=== PATIENT | female | born 1955 | race Caucasian/White ===

== ENCOUNTER 2016-09-04 08:20 | Day surgery (SDC) | payer BC ==
[~2016-09-04] VITALS: Ht 149.9 cm; Wt 73.9 kg
[~2016-09-04 08:20] MED LIST: GABAPENTIN100 MG PO; GLUCOPHAGE500 MG PO; GLUCOTROL 5 MG T5 MG PO
[2016-09-04 09:30] VITALS: BP 162/87; Ht 149.9 cm; Wt 73.9 kg
[2016-09-04 10:00] LABS: MCH 29.5 pg (26.0-34.0); MCHC 34.2 g/dL (31.0-37.0); MCV 86.4 fL (80.0-100.0); MEAN PLATELET VOLUME 10.9 fL (7.4-10.4); RBC 4.4 10x6/uL (4.00-5.40); RDW 13.6 % (11.5-14.5); WBC 7.2 10x3/uL (4.8-10.8)
[2016-09-04 10:23] LABS: CALC OSMOLALITY 284 mosm/kg (275-300); CALCIUM 8.8 mg/dL (8.5-10.1); CARBON DIOXIDE 26.8 mmol/L (21.0-32.0); CHLORIDE - SERUM 105 mmol/L (98-107); CREATININE - SERUM 0.7 mg/dL (0.6-1.3); GLUCOSE 143 mg/dL (74-106); POTASSIUM - SERUM 4.4 mmol/L (3.5-5.1); SODIUM 140 mmol/L (136-145); UREA NITROGEN 25 mg/dL (7-18); eGFR NON AFRICAN AMERICAN > 90 mL/min (90-120)
[2016-09-04] MEDS ORDERED: HYDROCODONE-APA1 TAB PO ×2 (12:06→12:07)
--- NOTE | 2016-09-04 14:16 | NUR ---
IV DC WITH CATHER TIP INTACT
--- NOTE | 2016-09-15 10:28 | OP ---
PATIENT NAME: ARAMIS ORTEGA MEDICAL RECORD: [id number] :57 LOCATION:[facility] ADMISSION DATE: SURGEON: SLAVA HAYDEN MD DATE OF OPERATION: 09/04/2016 PREOPERATIVE DIAGNOSIS: Right lateral malleolus fracture with displacement. POSTOPERATIVE DIAGNOSIS: Right lateral malleolus fracture with displacement. PROCEDURE PERFORMED: ____ open reduction and internal fixation with the [place] 3.0 fibular nail. SURGEON: Landon Hayden MD ANESTHESIA: General. She did get a block for postop pain. CONDITION: She tolerated the procedure well, was transferred to recovery room in stable condition at the termination of procedure. INDICATIONS: This is a pleasant 60-year-old female that had a fall, had a fracture of her left fibula. It was displaced. We discussed options with her. She wanted to go ahead and do an open reduction internal fixation. She did have joint opening on her x-rays, but did not appear to have medial malleolar fracture. OPERATIVE REPORT: The patient was taken to the operating room, placed in supine position. General anesthesia was obtained. She did get a block in the preop holding area. In the operating room, she underwent a prep and drape in the standard fashion. She did receive her Ancef per protocol. After this was accomplished, we did make a small incision over the fracture site. Fracture was reduced using lion jaw clamp. I then placed the pin in the distal tip of her fibula. I verified on AP and lateral views that this was up the center of the fibula. I then overdrilled the distal portion with a larger drill, replaced the guide pin with a smaller guide pin and over drilled the guide pin proximally. Once this was accomplished, I went ahead and placed through the nail. This was placed up into the fibula and verified to be within the bone, following which, I deployed the locking device in the proximal portion of the nail by screwing into the nail until it was deployed. This was notably deployed on the x-rays showing it. I then went ahead and placed 2 screws distally into the 2 distal locking holes. Once this was placed, I copiously irrigated, then closed with 2-0 Vicryl, then lacy. She was then cleaned, following which a sterile gauze was placed and an Kevin wrap. She was then placed in an AO type splint, awakened and transferred to the recovery room in stable condition, having tolerated procedure well. TRANSINT:[id number] Voice Confirmation ID: [id number] DOCUMENT ID: [id number] OPERATIVE REPORT [id number] ARAMIS ORTEGA, SLAVA TOMPKINS MD at 1028 CC: [id number] DICTATION DATE: 09/04/16 1213 [employer]OM[employer] BRAKES BONDER: 09/04/16 1345 [facility] 09/04/16 [place] [id number]
== END 2016-09-04 14:15 | disposition home or self-care (01) ==
LOC: D.OPS 08:20 → D.PAN 10:30 → D.OPS 10:30
PROVIDERS: Anesthesiology
DX: S82.61XA Displaced fracture of lateral malleolus of right fibula, initial encounter for closed fracture (principal)

== ENCOUNTER → 2016-11-26 10:15 | Outpatient (CLI) | payer OTHER ==
[2016-09-04 09:30] VITALS: BMI 33.0
[~2016-11-26 10:15] MED LIST changes: +HYDROCODONE-APA1 TAB PO
== END | disposition home or self-care (01) ==
LOC: D.RAD 10:15
DX: Z02.71 Encounter for disability determination (principal)

== ENCOUNTER → 2017-04-22 08:56 | Outpatient (CLI) | payer BC ==
[2016-09-04 09:30] VITALS: BMI 33.0
== END | disposition home or self-care (01) ==
LOC: D.CT 08:56
DX: M21.372 Foot drop, left foot (principal); M21.371 Foot drop, right foot

== ENCOUNTER → 2019-01-02 16:27 | Outpatient (CLI) | payer BC ==
[2016-09-04 09:30] VITALS: BMI 33.0
== END | disposition home or self-care (01) ==
LOC: D.US 16:00
PROVIDERS: ATTEND Family Medicine
DX: I70.248 Atherosclerosis of native arteries of left leg with ulceration of other part of lower leg (principal)

== ENCOUNTER → 2019-01-09 07:22 | Outpatient (CLI) | payer BC ==
[2016-09-04 09:30] VITALS: BMI 33.0
== END | disposition home or self-care (01) ==
LOC: D.CT 07:22
PROVIDERS: ATTEND Family Medicine
DX: I65.23 Occlusion and stenosis of bilateral carotid arteries (principal)

== ENCOUNTER 2019-02-27 08:25 | Day surgery (SDC) | payer BC ==
[~2019-02-27] VITALS: Ht 149.9 cm; Wt 85.9 kg
--- NOTE | ~2019-02-27 | HEMODYNAMI ---
PATIENT:ARAMIS ORTEGA MEDICAL RECORD: [id number] : 57 LOCATION:[facility] ADMISSION DATE: 02/27/19 Generatedon:02/27/201912:12 Patient name: ARAMIS ORTEGA Patient #: [id number] SSN: : Date of study: 02/27/2019 Page: Of Hemodynamic Procedure Report Patient Data Patient Demographics Procedure consent was obtained First Name: ARAMIS Gender: Female Last Name: JORDAN : 1955 [facility] Initial: CELIA Age: 63 year(s) Patient #: [id number] Race: Unknown Additional ID: [id number] Contact details Address: [address] [place] [address] State: [place] City: [place] Zip code: [address] Past Medical History Allergies: No known allergies Admission Admission Data Admission Date: 02/27/2019 Admission Time: 7:54 Procedure Procedure Types Cath Procedure Peripheral Cath Diagnostic Procedure Abd/Extremity Extremities Bilat Lower Extremity Procedure Description Procedure Date Procedure Date: 02/27/2019 Procedure Start Time: 10:51 Procedure End Time: 11:56 Procedure Staff Name Function Timothy Cheyenne RT Scrub Matthew Reyes MD Performing Physician Soo Argueta RT Monitor Rosa Wu RN Nurse Eulalia Mathew RN Nurse Procedure Data Cath Procedure Fluoroscopy Diagnostic fluoroscopy Total fluoroscopy Time: 7.4 time: 7.4 min min Diagnostic fluoroscopy Total fluoroscopy dose: 584 dose: 584 mGy mGy Contrast Material Contrast Material Type Amount (ml) Isovue 300 85 Entry Location Entry Primary Successful Side Size Upsize Upsize Entry Closure Succes sful Closure Location (Fr) 1 (Fr) 2 (Fr) Remarks Device Remarks Femoral artery Procedure Medications Medication Administration Route Dosage Lidocaine 1% added to field 20 Heparin Flush Bag added to field 3 bags (1000units/500ml NS) Benadryl I.V. 50 mg Versed I.V. 1 mg Fentanyl I.V. 50 mcg Versed I.V. 1 mg Fentanyl I.V. 50 mcg Heparin Bolus I.V. 4000 units Nitroglycerin IC/IA I.A. 300 mcg Versed I.V. 1 mg Fentanyl I.V. 50 mcg Hemodynamics Rest Heart Rate: 74 (bpm) Snapshots Pre Cath Intra NCS Post Cath Vital Signs Time Heart Resp SPO2 etCO2 NIBP (mmHg) Rhythm Pain Sedation Rate (ipm) (%) (mmHg) Status Level (bpm) 10:37:34 84 16 100 0 Measuring NSR 0 (11) 10(A) , No pain 10:37:52 75 15 100 18 167/88(134) NSR 0 (11) 10(A) , No pain 10:42:10 73 15 100 20 166/85(130) NSR 0 (11) 10(A) , No pain 10:46:27 73 16 100 20 175/93(134) NSR 0 (11) 10(A) , No pain 10:50:51 74 17 99 20 159/78(128) NSR 0 (11) 8(A) , No pain 10:55:48 72 13 100 36.1 159/87(134) NSR 0 (11) 8(A) , No pain 10:58:54 70 15 100 18.8 153/77(131) NSR 0 (11) 8(A) , No pain 11:03:08 74 13 100 10.5 161/82(130) NSR 0 (11) 8(A) , No pain 11:07:24 71 15 100 38.3 153/86(121) NSR 0 (11) 8(A) , No pain 11:11:40 74 18 100 36.1 152/78(120) NSR 0 (11) 8(A) , No pain 11:15:56 70 20 100 44.5 151/80(117) NSR 0 (11) 8(A) , No pain 11:20:14 71 19 100 36.9 127/74(96) NSR 0 (11) 8(A) , No pain 11:24:22 71 18 99 19.6 143/73(122) NSR 0 (11) 8(A) , No pain 11:28:36 70 21 100 21 142/72(99) NSR 0 (11) 8(A) , No pain 11:32:48 73 12 100 39.1 129/82(107) NSR 0 (11) 8(A) , No pain 11:36:56 74 10 99 38.4 133/76(100) NSR 0 (11) 8(A) , No pain 11:41:14 71 16 99 33.9 135/62(104) NSR 0 (11) 8(A) , No pain 11:45:26 73 16 99 27.8 128/72(106) NSR 0 (11) 8(A) , No pain 11:49:33 71 20 100 37.6 140/78(106) NSR 0 (11) 8(A) , No pain 11:53:47 71 15 99 24.1 132/72(107) NSR 0 (11) 8(A) , No pain Medications Time Medication Route Dose Verified Delivered Reason Notes Effe ctiveness by by 10:37:30 Lidocaine 1% added 20ml Matthew Castro for local to vial Eric Reyes MD anesthetic field ESCALERA 10:46:53 Heparin Flush added 3 Matthew Castro used for Bag to bags Eric Reyes MD procedure (1000units/500ml field ESCALERA NS) 10:47:12 Benadryl I.V. 50 mg Matthew Lee for Bryce Reyes RN sedation 10:49:01 Versed I.V. 1 mg Matthew Lee for Bryce Reyes RN sedation 10:49:13 Fentanyl I.V. 50 Matthew Lee for mcg Bryce Reyes RN sedation 10:56:51 Versed I.V. 1 mg Matthew Lee for Bryce Reyes RN sedation 10:56:59 Fentanyl I.V. 50 Matthew Lee for mcg Bryce Reyes RN sedation 11:15:23 Heparin Bolus I.V. 4000 Matthew Lee Per units Bryce Reyes RN physician 11:34:15 Nitroglycerin I.A. 300 Matthew Castro Per IC/IA mcg Eric Reyes MD physician 11:39:51 Versed I.V. 1 mg Matthew Lee for Bryce Reyes RN sedation 11:40:04 Fentanyl I.V. 50 Matthew Lee for mcg Bryce Reyes RN sedation Procedure Log Time Note 10:09:01 Rosa Wu RN sent for patient. Start room use. 10:09:04 Time tracking: Regular hours (M-F 7:00 - 5:00) 10:09:13 Plan of Care:Hemodynamics will remain stable., Cardiac rhythm will remain stable., Comfort level will be maintained., Respiratory function will remain adequate., Patient/ family verbilizes understanding of procedure., Procedure tolerated without complication., Recovers from procedure without complications.. 10:09:26 Use device set IR Diagnostic 10:09:29 ACIST Syringe (69420) opened to sterile field. 10:09:30 ACIST Hand Control (95290) opened to sterile field. 10:09:31 ACIST Manifold (66571) opened to sterile field. 10:09:32 Sterile Angiographic Pack opened to sterile field. 10:09:32 Bag Decanter (2002S) opened to sterile field. 10:09:33 Tegaderm 4 x 4 (1626W) opened to sterile field. 10:10:30 SHEATH 5FR [place] (KOL366) opened to sterile field. 10:10:31 HARRY 260 wire (C80328) opened to sterile field. 10:10:32 TUBING Contrast Injection High Pressure (ATS401K) opened to sterile field. 10:11:06 Micropuncture VSI 4FR kit opened to sterile field. 10:19:10 Patient received from Outpatients to IR Alert and oriented. Tansferred to table in Supine position. 10:19:14 Signed procedure consent form obtained from patient. 10:19:16 Warm blankets applied for patient comfort. 10:19:18 Correct patient and procedure confirmed by team. 10:22:02 H&P Date Dictated: 02/27/2019 H&P Addendum completed by physician on day of procedure. (MUST COMPLETE FOR ALL OUTPATIENTS). 10:22:05 Pre-procedure instructions explained to patient. 10:22:07 Pre-op teaching completed and patient verbalized understanding. 10:22:12 Family in waiting room. 10:22:19 Patient NPO since Midnight. 10:22:31 Patient allergic to pseudoephedrine and Nalfon. 10:22:35 Is the patient allergic to Iodine/contrast media? No. 10:22:45 Is patient on blood thinner?No 10:22:52 Patient diabetic? Yes. 10:22:55 If diabetic: On Metformin? Yes 10:23:06 If on Metformin: Last Dose? 02/26/2019 10:23:12 - 10:24:42 ----Pre-sedation anethsthesia assessment.---- 10:24:49 Previous problem with sedation/anesthesia? No ? 10:24:51 Snore? Yes 10:24:54 Sleep apnea? No 10:24:58 Deviated septum? No 10:25:01 Opens mouth fully? Yes 10:25:04 Sticks out tongue? Yes 10:25:13 Airway obstruction? No ? 10:25:22 Dentures? No ? 10:25:43 IV patent on arrival in left forearm with 0.9% NaCl at [facility]. 10:33:03 Pre procedure: bilateral dorsailis pedis pulse Doppler 10:35:43 ECG and BP/O2 sat monitors applied to patient. 10:35:45 Vital chart was started 10:35:47 Full Disclosure recording started 10:37:30 Lidocaine 1% 20ml vial added to field was administered by Matthew Reyes MD; for local anesthetic; 10:46:01 Baseline sample Acquired. 10:46:20 Patient pain scale 8/10 ?low back pain. 10:46:53 Heparin Flush Bag (1000units/500ml NS) 3 bags added to field was administered by Matthew Reyes MD; used for procedure; 10:46:58 Right groin area was prepped with chlora-prep and draped in sterile fashion 10:47:00 Alarms reviewed. 10:47:03 Sharps counted by scrub and verified. 10:47:12 Benadryl 50 mg I.V. was administered by Rosa Wu RN; for sedation; 10:47:20 Physician arrived 10:47:21 --------ALL STOP TIME OUT------ 10:47:22 Final Timeout: patient, procedure, and site verified with staff and physician. All members of the team are in agreement. 10:47:26 Right groin site verified by team. 10:47:39 Sedation plan: IV Moderate Sedation Medication:Versed, Fentanyl, Lidocaine 10:48:07 Procedure started. 10:49:01 Versed 1 mg I.V. was administered by Rosa Wu RN; for sedation; 10:49:13 Fentanyl 50 mcg I.V. was administered by Rosa Wu RN; for sedation ; 10:51:13 Local anesthetic to right femoral artery with Lidocaine 1% by Matthew Reyes MD.INITIAL ACCESS ONLY 10:51:40 GLIDE CATHETER 5FR ANGLED 65cm (CG507) opened to sterile field. 10:52:07 MICROPUNCTURE 4FR Cook (G28667) opened to sterile field. 10:52:26 Angiodynamics Omniflush 5Fr 65cm (06692558) opened to sterile field. 10:53:31 Access obtained with 4Fr micropunture. 10:56:51 Versed 1 mg I.V. was administered by Rosa Wu RN; for sedation; 10:56:59 Fentanyl 50 mcg I.V. was administered by Rosa Wu RN; for sedation ; 10:59:32 A sheath was inserted into the Femoral artery 11:00:09 cook j wire advanced. 11:05:43 The omni flush is used and an injection is made. 11:06:58 GLIDE WIRE ANGLE 180cm (BR3948) opened to sterile field. 11:07:31 DOC .035 wire (S20633) opened to sterile field. 11:07:58 INFLATOR BasixTOUCH (MJ4479) opened to sterile field. 11:08:23 GLIDE WIRE ANGLE 180cm (PC3261) opened to sterile field. 11:10:10 Cordis 5Fr [place] Destination sheath opened to sterile field. 11:10:36 TORQUE DEVICE PLASTIC .038 ( TD01) opened to sterile field. 11:11:11 Trailblazer 0.018 catheter ([id number]) opened to sterile field. 11:11:27 CHOICE PT Extra Support J 300cm guide wire (3728714S5) opened to steril e field. 11:12:59 An injection is made with the glide cath. 11:13:45 The 5 burmese sheath is exchanged for the 5 burmese destingation sheath. 11:15:07 CXI SUPPORT .035 135 CM STR catheter (T69648) opened to sterile field. 11:15:23 Heparin Bolus 4000 units I.V. was administered by Rosa Wu RN; Per physician; 11:16:47 GLIDE WIRE MERIT Angled 260cm ([id number]) opened to sterile field. 11:23:09 Inflate balloon Inflation number: 1 A CHOCOLATE 3.0 x 40 x 150 balloon ([id number]) was prepped and advanced across the Tibial Peroneal Trunk, Left , then inflated to 9 KELLIE for 0:18 (min:sec) . 11:23:51 COPILOT Valve Control (1476246) opened to sterile field. 11:32:29 Inflate balloon Inflation number: 1 A CHOCOLATE 4.0 x 40 x 135 balloon ([id number]) was prepped and advanced across the Tibial Peroneal Trunk, Left1 , then inflated to 9 KELLIE for 0:00 (min:sec) . 11:34:15 Nitroglycerin IC/IA 300 mcg I.A. was administered by Matthew Reyes MD; Pe r physician; 11:39:51 Versed 1 mg I.V. was administered by Rosa Wu RN; for sedation; 11:40:04 Fentanyl 50 mcg I.V. was administered by Rosa Wu RN; for sedation ; 11:41:00 The destination is exchanged for a 5 burmese short sheath. 11:43:17 EXOSEAL 5Fr (EX500) opened to sterile field. 11:43:58 5 burmese exoseal is deployed. 11:44:26 Procedure ended.(Physican Out) 11:45:29 Fluoroscopy time 07.40 minutes. 11:45:36 Fluoroscopy dose: 584 mGy 11:45:36 Flurop Dose total: 584 11:45:49 Dose Area Product 615010 mGy/cm. 11:45:56 Contrast amount:Isovue 300 85ml. 11:46:00 Sharps counted by scrub and verified. 11:46:19 Insertion/operative site no bleeding no hematoma. 11:46:28 Post-op/insertion site Right Femoral artery dressed using a 4 x 4 and Tegaderm. 11:46:36 Post right femoral artery:stable 11:46:43 Post Procedure Pulses reassessed and unchanged 11:46:51 Post procedure instruction explained to patient.Patient verbalizes understanding. 11:46:53 Patient needs reinforcement of post procedure teaching. 11:46:56 Procedure and supply charges have been captured, reviewed, submitted an d are correct. 11:55:59 Vital chart was stopped 11:56:00 See physician's report for complete and final results. 11:56:04 Report given to Outpatients. 11:56:10 Patient transfered to Outpatients with Stretcher. 11:56:20 Full Disclosure recording stopped 11:56:20 Procedure ended. Intervention Summary Intervention Notes Time ActionType Lesion and Equipment Used Action# Pressure Duration Attributes 11:23:09 Inflate Tibial CHOCOLATE 3.0 x 40 1 9 00:18 balloon Peroneal x 150 balloon Trunk, Left ([id number]) 11:32:29 Inflate Tibial CHOCOLATE 4.0 x 40 1 9 00:00 balloon Peroneal x 135 balloon Trunk, ([id number]) Left1 Device Usage Item Name Manufacture Quantity Catalog Number Hospital Part Cur rent Minimal Lot# / Charge Number Stock Stock Serial# Code ACIST Syringe Acist Medical 1 80892 758084 295995 987 526 20 (64113) Systems Inc ACIST Hand Control Acist Medical 1 11919 968733 183312 987 955 5 (31567) Systems Inc ACIST Manifold Acist Medical 1 82715 198764 574453 987 972 5 (75864) Systems Inc Bag Decanter Microtek 1 2001S 693168 53152 986 035 5 (2001S) Medical Inc. Sterile Cardinal 1 [id number] 109138 998 100 5 Angiographic Pack [facility] Tegaderm 4 x 4 3M 1 1626W 341684 651988 991 453 5 (1626W) SHEATH 5FR Terumo 1 MTV365 538943 605125 994 838 5 [place] (ECZ568) HARRY 260 wire Bim Medical 1 X28671 202294 64358 999 525 5 [id number] (K98715) TUBING Contrast [facility] 1 [id number] 266343 825901 999 402 5 Injection High Pressure (OBF469R) Micropuncture VSI VSI VASCULAR 1 7266V 754891 999 259 5 4FR kit SOLUTIONS GLIDE CATHETER 5FR Terumo 1 CG507 172268 999 672 5 ANGLED 65cm (CG507) MICROPUNCTURE 4FR [facility] 1 T92905 321817 449678 999 741 5 Bizible (M16482) Angiodynamics Angiodynamics 1 21950260 939932 598942 999 926 5 Omniflush 5Fr 65cm (14052310) GLIDE WIRE ANGLE Terumo 2 YM9762 607223 791837 999 573 5 180cm (IS1588) DOC .035 wire [facility] 1 J25602 292726 999 442 5 (Q57273) INFLATOR [facility] 1 RL1872 696026 555094 999 722 5 BasixTOUCH (ER3676) Cordis 5Fr Cardinal 1 5440097 950212 47597 999 982 5 Gone! Destination sheath TORQUE DEVICE [place] 1 TD01 678641 905702 999 278 5 PLASTIC .038 ( Scientific TD01) Trailblazer 0.018 Medtronic 1 ASC-018-150 088341 1019533 999 994 5 catheter ([id number]) CHOICE PT Extra [place] 1 [id number] 116196 304444 998 931 5 [id number] Support J 300cm Scientific guide wire (9508162M6) CXI SUPPORT .035 Bizible [facility] 1 G51993 156754 268434 999 812 5 [id number] 135 CM STR catheter (K48277) GLIDE WIRE [facility] 1 [id number] 983853 361525 999 953 5 [id number] Angled 260cm ([id number]) CHOCOLATE 3.0 x 40 Medtronic 1 [id number] 889166 721855 999 996 5 [id number] x 150 balloon OTW [id number] ([id number]) [id number] COPILOT Valve Escobar 1 0199718 785894 073137 999 771 5 Control (0420437) Vascular CHOCOLATE 4.0 x 40 Medtronic 1 [id number] 025017 73460 999 990 5 x 135 balloon O ([id number]) TW EXOSEAL 5Fr Cardinal 1 EX500 464033 609226 997 698 10 (EX500) Health Signature Audit Gabriels Stage Time Signature Unsigned Intra-Procedure 02/27/2019 Soo 11:56:57 AM Ellie RT(R) (CV) [facility] [address] [place] [address]
[2019-02-27 08:19] LABS: BASOPHILS 0.1 % (0-2); EOSINOPHILS 1.5 % (0-7); HEMATOCRIT 38.8 % (36.0-48.0); HEMOGLOBIN 13.6 g/dL (12-16); IMMATURE GRANULOCYTES 0.6 % (0-5); LYMPHOCYTES 16.7 % (15-50); MCH 29.6 pg (26.0-34.0); MCHC 35.1 g/dL (31.0-37.0); MCV 84.5 fL (80.0-100.0); MEAN PLATELET VOLUME 10.7 fL (7.4-10.4); MONOCYTES 5.3 % (2-11); NEUTROPHILS 75.8 % (40-80); PLATELET COUNT 169 10x3/uL (130-400); RBC 4.59 10x6/uL (4.00-5.40); WBC 8.2 10x3/uL (4.8-10.8)
[2019-02-27 08:29] LABS: ANION GAP 12.1 mmol/L (8-16); CALCIUM 8.7 mg/dL (8.5-10.1); CARBON DIOXIDE 30.3 mmol/L (21.0-32.0); POTASSIUM - SERUM 4.4 mmol/L (3.5-5.1)
[2019-02-27 08:30] LABS: APTT 28.3 SECONDS (22.8-39.4); INR 0.92 (0.85-1.17); PROTIME 11.9 SECONDS (11.6-15.0)
[2019-02-27] MEDS ORDERED: TRESIBA FL100 UNIT/1 (09:49)
[2019-02-27] MEDS ORDERED: TRESIBA SQ (09:50)
[2019-02-27 10:01] VITALS: BP 150/69; Ht 149.9 cm; Wt 85.9 kg
--- NOTE | 2019-02-27 18:36 | NUR ---
1225 MEDICATED PO NORCO 5MG FOR PAIN IN BACK. CHRONIC PAIN. PT REQUESTING TO ROLL TO SIDE. 1325 CONTINUED PAIN BUT SLIGHTLY BETTER. TURNED PT TO RIGHT SIDE WITH PILLOW X2 KEEPING LEGS STRAIGHT
--- NOTE | 2019-02-27 18:37 | NUR ---
1400 ASLEEP IN BED. LEGS STRAIGHT. NO HEMATOMA TO RT GROIN. PALP PULSES
== END 2019-02-27 15:40 | disposition home or self-care (01) ==
LOC: D.OPS 08:25 → D.RAD 10:30 → D.OPS 15:40
PROVIDERS: ATTEND General Practice
DX: E11.51 Type 2 diabetes mellitus with diabetic peripheral angiopathy without gangrene (principal); I70.222 Atherosclerosis of native arteries of extremities with rest pain, left leg; E11.40 Type 2 diabetes mellitus with diabetic neuropathy, unspecified